=== PATIENT | male | born 1970 | race Caucasian/White ===

== ENCOUNTER 2016-02-17 18:53 | Emergency (ER) | payer MEDICARE, MEDICAID ==
[~2016-02-17] VITALS: Ht 182.9 cm; Wt 100.0 kg
[2016-02-17 18:58] VITALS: BP 163/91; PULSE 76; RESP 14; O2SAT 97
--- NOTE | 2016-02-17 19:07 | ED.REPORT ---
HPI-Psychiatric Illness Date of Service Feb 17, 2016 ED Provider: Rajan Guadalupe MD Patient is a 45 year old Schizophrenic male with a history of diabetes mellitus , hypertension, depression, and prior suicide attempt who is brought to the ED by his parents due to increasing suicidal ideations for the past month due to command hallucinations. Patient states that he would jump off a bridge to commit suicide and he states that he would act on this plan. He has previously tried to commit suicide via drug overdose. Patient's therapist called his parents this afternoon and stated that he would like the patient to be admitted to the hospital. He also believed that the patient would act on the command hallucinations to commit suicide. The patient is on several psychiatric medications, which is therapist believes need to be adjusted. The patient lives at [facility] in [place], an assisted living facility. The patient' s parents do not wish for him to live with them, as he has previously threatened to harm them. They are his co-power of attorneys. The patient was previously followed by [facility], but is now seen by JENNIE Hopson to prescribe his psychiatric medications. Dave Mckeon is his therapist. The patient and his parents moved here from [place] three years ago and since that time he has been placed on many additional psychiatric medications. His parents would like for him to be seen by a psychiatrist to truly evaluate what medications he should be on. The patient has his medications with him in his bag. Psychiatric Medications: Benztropine 1mg BID Clozaril 550mg QHS Lamotrigine 75mg BIG Trazodone 550mg QHS Nursing Notes Stated Complaint: SI/HALLUCINATIONS Chief Complaint: Psychiatric Complaint Nursing Notes Reviewed: Yes Allergies: Coded Allergies: No Known Allergies (Unverified , 02/17/16) General Time Seen by MD: 19:05 Chief Complaint Suicidal ideation Hx Obtained From: Patient, Other family... (Father) Arrived By: Walk-in Onset Occurred: More than a week ago... (1 month) Symptom Duration: Since onset Recent Healthcare: No recent doctor visit, No recent hospitalization Similar Sx Previous: Yes Risk-Psychiatric Illness Suicide Risk Stratification Suicide Risk Factors - Adult: : Previous attempt: Prior psych admission RF Statements: Risk factors reviewed Past Medical History Past Medical History Schizophrenia depression prior suicide attempt via overdose diabetes mellitus hypertension Past Surgical History none reported Smoking History Former Smoker Social History [facility] at [facility] Other Social History: Good social support, Lives in [place], Local resident Ambulatory Status Independent Review of Systems Constitutional: Denies: Chills, Fever Psychiatric: Reports: Depression, Hallucinations, auditory, Suicidal ideation Complete sys rev & neg: except as marked. Physical Exam Initial Vital Signs Vital Signs (First) Date Time Temp Pulse Resp B/P Pulse Ox O2 Delivery O2 Flow Rate FiO2 02/17/16 18:58 36.4 76 14 163/91 97 Room Air Initial VS: Reviewed Head / Eyes: Atraumatic, Normocephalic, PERRL ENT: Conjunctiva normal, No scleral icterus Neck: Supple, Full range of motion Skin: Warm, Dry, No cyanosis General/Constitutional: Awake, Alert, No acute distress Neurologic: Oriented X3, Speech NL Abnormal Mood/Affect: Positive: Flat affect (mild) Abnormal Thinking / Perception: Positive: Suicidal, with plan (jump off bridge) appropriate speech, smiling. Respiratory / Chest: Breath sounds NL, Breath sounds = bilat, No respiratory distress, No rales, No rhonchi, No wheezing Cardiovascular: Heart rate NL, Regular rhythm, No murmurs Abdomen: Soft, Non-tender, BS normoactive Upper Extremity / MS: No swelling, No edema Lower Extremity / Pelvis / MS: No swelling, No edema Interpretation & Diagnostics Interpretation & Diagnostics: Breathalyzer: 0.00 Lab Results Interpretation Result Diagram: 02/17/16214702/17/162147 Test 02/17/16 20:35 02/17/16 21:48 Hold Urine Received (Received) White Blood Count 6.1th/mm3 (3.8-10.1) Red Blood Count 4.41mil/mm3 (4.40-5.80) Hemoglobin 12.7g/dL (13.8-17.2) Hematocrit 38.6% (41.0-50.0) Mean Corpuscular Volume 87.5fL (81-100) Mean Corpuscular Hemoglobin 28.8pg (27.0-35.0) Mean Corpuscular Hemoglobin Concent 32.9% (32.0-37.0) Red Cell Distribution Width 14.0% (12.3-15.4) Platelet Count 238bil/L (150-400) Neutrophils (%) (Auto) 59.0% (40-74) Lymphocytes (%) (Auto) 29.1% (14-46) Monocytes (%) (Auto) 7.6% (4-12) Eosinophils (%) (Auto) 3.5% (0-5) Basophils (%) (Auto) 0.5% (0-3) Sodium Level 142mEq/L (134-144) Potassium Level 4.0mEq/L (3.5-5.2) Chloride Level 105mEq/L (97-108) Carbon Dioxide Level 24mmol/L (18-29) Blood Urea Nitrogen 14mg/dL (6-24) Creatinine 0.99mg/dL (0.76-1.27) Estimat Glomerular Filtration Rate 86mL/min (>59) Glucose Level 156mg/dL (60-99) Calcium Level 8.7mg/dL (8.5-10.1) Total Bilirubin 0.2mg/dL (0.0-1.2) Aspartate Amino Transf (AST/SGOT) 11U/L (0-50) Alanine Aminotransferase (ALT/SGPT) 12U/L (0-44) Alkaline Phosphatase 86U/L (25-150) Total Protein 5.9g/dL (6.4-8.4) Albumin 3.7g/dL (3.4-5.0) Thyroid Stimulating Hormone (TSH) 3.630uIU/mL (0.450-4.500) Hold [place]more Top Tube Received (Received) Drug Screen / Level Interp Urine drug screen neg Re-Eval/Medical Decision Med Decision/Clinical Course 45-year-old male history of schizophrenia, diabetes managed on orals, hypertension, history of previous suicide attempt with pills reasoning with suicidal ideation with plan to jump off a bridge. Social work was consulted when the patient was here at 1930 but did not feel they had enough time to work on voluntary admission. Labs unremarkable. Breathalyzer normal, urine tox normal. Patient will be kept in our ER awaiting psych social worker evaluation in the morning. He was given his home medication of clozaril and trazodone. Sitter. Re-Evaluation/Progress : Time of Eval: 20:20 Re-Evaluation/Progress Note: Informed the patient and his parents of the plan established by [facility]. He will stay in the ED overnight and be evaluated by STATISTICS INTERN in the morning. Patient agrees to stay safe in the ED and his parents will return home. Consultation : Consulted With: dope maintenance worker Call Returned at: 19:30 Note: Spoke with the ED STATISTICS INTERN, who has spoken to the patient and his parents. She does not have time to see the patient before the end of her shift. Patient is voluntary and therefore DCR cannot be called. Patient will need to stay in the ED overnight to be seen by the STATISTICS INTERN in the morning. Discharge & Departure Shift Change Sign-Out Patient Care Transferred: Yes Discussed Complaint(s): Yes Laboratory Evaluation: Back, reviewed by me Additonal Information: Awaiting STATISTICS INTERN evaluation. Impression: Primary Impression: Suicidal ideations Additional Impressions: Schizophrenia Schizophrenia type: unspecified Qualified Code: F20.9 - Schizophrenia, unspecified Depression Depression Type: major depressive disorder Major depression recurrence: recurrent Active/Remission status: currently active Major depression episode severity: unspecified Qualified Code: F33.9 - Major depressive disorder, recurrent, unspecified Referrals: Jalyn Lam MD Care Transferred to: Dr. Toro Care Transferred at: 00:00 Miguel Attestation Portions of this note were transcribed by Fatmata Jones. I, Dr. Guadalupe personally performed the history, physical exam and medical decision-making; I reviewed and confirmed the accuracy of the information in the transcribed note. Signed by: Miguel Esquivel, 02/17/2016 0492 copies to: Jalyn Lam MD, Ben M MD Feb 17, 2016 19:07 Fatmata Jones Feb 17, 2016 19:09
[2016-02-17 22:02] LABS: BASOPHILS % (AUTO) 0.5 % (0-3); EOSINOPHILS % (AUTO) 3.5 % (0-5); MONOCYTES % (AUTO) 7.6 % (4-12); Mean Corpuscular Hemoglobin 28.8 pg (27.0-35.0); Mean Corpuscular Volume 87.5 fL (81-100); Platelet Count 238 bil/L (150-400)
[2016-02-18 01:07] VITALS: BP 153/96; PULSE 81; RESP 16; O2SAT 96
[2016-02-18 04:26] VITALS: BP 150/101; PULSE 80; O2SAT 98
[2016-02-18 07:34] VITALS: BP_SYST 118; BP_SYST 147; BP_DIAS 53; BP_DIAS 93; PULSE 59; PULSE 91; RESP 14; RESP 16; O2SAT 100; O2SAT 98
[2016-02-18] MEDS ORDERED: LACT1CAP13 PO (13:29)
[2016-02-18] MEDS ORDERED: ACET325T51 PO (13:38)
[2016-02-18] MEDS ORDERED: LORA0.5T PO (13:38)
[2016-02-18] MEDS ORDERED: ASPI325T32 PO (13:38)
[2016-02-18] MEDS ORDERED: DOCU-41 PO (13:38)
[2016-02-18] MEDS ORDERED: CLOZ100T PO ×2 (13:38)
[2016-02-18] MEDS ORDERED: LANS30CA PO (13:38)
[2016-02-18] MEDS ORDERED: PALI234D IM (13:38)
[2016-02-18] MEDS ORDERED: OMEG1CAP56 PO (13:38)
[2016-02-18] MEDS ORDERED: ATRV10T PO (13:38)
[2016-02-18] MEDS ORDERED: BENZ0.5T3 PO (13:38)
[2016-02-18] MEDS ORDERED: OXYC-474 PO (13:38)
[2016-02-18] MEDS ORDERED: METO25TA6 PO (13:38)
[2016-02-18] MEDS ORDERED: METF500T4 PO (13:38)
[2016-02-18] MEDS ORDERED: DOSS (13:38)
[2016-02-18] MEDS ORDERED: LAMO25TA PO (13:38)
[2016-02-18] MEDS ORDERED: TRAZ150T72 PO (13:40)
[2016-02-18] MEDS ORDERED: DESV100T PO (13:40)
[2016-02-18] MEDS ORDERED: ASEN5TAB7 SL (13:40)
[2016-02-18] MEDS ORDERED: ASEN10TA9 SL (13:40)
[2016-02-18] MEDS ORDERED: SENN-133 PO (13:40)
[2016-02-18 16:20] VITALS: BP 147/83; PULSE 89; RESP 18; O2SAT 99
--- NOTE | 2016-02-18 17:19 | NUR ---
[facility] Note At 1200 Patient appeared flat but would brighten briefly upon engagement. Patient continued to perseverate and ask the same questions repeatedly such as "What's going to happen to me?" and "Am I doing the right thing?" He stated that he came here because of his child welfare social worker. He had stated that he needed to change his medication because it wasn't working for him. Patient stated that he had been taking the same medications and did not stop taking any, he just started to feel more depressed. He stated that he was having no hallucination or thought disturbances, despite some confusion and memory problems. He was oriented to time and place but would get stuck on the why and ask the aforementioned questions repeatedly. Patient denies and suicidal or homicidal ideation while he is here, stating that he feels that he is safe. He did appear anxious stating that he was worried about what he was doing and what would happen to him, but remained behaviorally calm until his discharge.
== END 2016-02-18 16:28 | disposition other institution (70) ==
LOC: SED 18:53
DX: F33.9 Major depressive disorder, recurrent, unspecified (principal); F20.9 Schizophrenia, unspecified; E11.9 Type 2 diabetes mellitus without complications; I10 Essential (primary) hypertension; Z79.84 Long term (current) use of oral hypoglycemic drugs; Z91.5 Personal history of self-harm; Z87.891 Personal history of nicotine dependence
CPT/HCPCS: 36415; 80053; 82075; 84443; 85025; 99285; S0136